=== PATIENT | male | born 1965 | race Two or more races ===

== ENCOUNTER 2021-08-29 16:15 | Emergency (ER) | payer SELFPAY ==
[~2021-08-29] VITALS: Ht 170.2 cm; Wt 72.1 kg
--- NOTE | 2021-08-29 16:15 | NUR ---
PT [address] [address] C/O ETOH. PT IS AAOX2, NOT IN RESPIRATORY DISTRESS, HOOKED TO V/S MONITOR, KEPT RESTED AND COMFORTABLE. WILL CONTINUE TO MONITOR.
[2021-08-29] MEDS ORDERED: IV NS 0.9% 1,000 ML IV ONE (18:30)
--- NOTE | 2021-08-29 18:43 | NUR ---
PATIENT ASLEEP, RESPONSE TO PAIN, CONNECTED TO MONITOR, BREATHING EVEN AND NON LABORED
[2021-08-29 19:07] LABS: CALCIUM, SERUM 8.3 mg/dL (8.5-10.1); CREATININE 0.9 mg/dL (0.6-1.3); POTASSIUM 4.2 mmol/L (3.5-5.1)
[2021-08-29 19:14] LABS: ALBUMIN 3.8 g/dL (3.4-5.0); BILIRUBIN,TOTAL 0.6 mg/dL (0.2-1.0); TOTAL PROTEIN, SERUM 8.7 g/dL (6.4-8.2)
[2021-08-29 20:16] LABS: BASOPHILS # (AUTO) 0.1 K/uL (0.0-0.2); BASOPHILS % (AUTO) 2.3 % (0.0-2.0); EOSINOPHILS % (AUTO) 6.1 % (0.0-6.0); HEMATOCRIT 33 % (39-51); LYMPHOCYTES # (AUTO) 1.3 K/uL (0.8-4.8); LYMPHOCYTES % (AUTO) 29.1 % (20.0-44.0); MEAN CORPUSCULAR HGB CONC 31 g/dl (31.0-36.0); MEAN CORPUSCULAR VOLUME 73 fL (80-96); MONOCYTES # (AUTO) 0.4 K/uL (0.1-1.30); MONOCYTES % (AUTO) 9.5 % (2.0-12.0); NEUTROPHILS # (AUTO) 2.3 K/uL (1.8-8.9); PLATELET COUNT (AUTO) 190 K/uL (150-450); RED BLOOD CELL COUNT(AUTO) 4.49 MIL/uL (4.5-6.0); WHITE BLOOD COUNT (AUTO) 4.4 K/uL (4.3-11.0)
--- NOTE | 2021-08-30 00:57 | NUR ---
Patient discharged to home in stable condition with a steady and even gait. Written and verbal after care instructions given. Patient verbalizes understanding of instruction.
[2021-08-30 00:58] VITALS: BP 110/60
== END 2021-08-30 00:58 | disposition home or self-care (01) ==
LOC: ER 18:06
DX: F10.129 Alcohol abuse with intoxication, unspecified (principal); Z60.2 Problems related to living alone; Y90.9 Presence of alcohol in blood, level not specified
CPT/HCPCS: 36415; 80053; 82962; 83690; 85007; 85025; 99283; J7030